=== PATIENT | female | born 1970 | race Caucasian/White ===

== ENCOUNTER 2018-07-11 07:48 | Emergency (ER) | payer OTHER ==
[~2018-07-11] VITALS: Ht 160 cm; Wt 72.6 kg
--- NOTE | 2018-07-11 07:49 | NUR ---
Patient to ER bed 6 to gown for evaluation. Side rails up. Report given to Jean-Claude KEANE.
--- NOTE | 2018-07-11 07:50 | NUR ---
PATIENT BROUGHT IN BY AMBULANCE. PATIENT AA&Ox4. RESPIRATIONS EVEN AND UNLABORED. DENIES OF ANY CHEST PAIN. 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 PT WITH A RIGHT UPPER ARM INJURY WITH DEFORMITY NOTED. PAIN = 05/10. PT CURRENTLY ON AN ARM SLING. ICE PACK GIVEN AND BEING APPLIED BY PT FOR PAIN; TOLERATING WELL. PT STATES THAT SHE HIT HER HEAD BUT DENIES OF ANY KO. PT RECALLS THE WHOLE INCIDENT. NO NAUSEA, VOMITING, OR DIZZINESS. +SLIGHT HEADACHE. NO HEMATOMA, BRUISING, OR REDNESS NOTED TO THE HEAD. REST AND RELAXATION ENCOURAGED.
[2018-07-11 07:53] VITALS: BP_SYST 132
--- NOTE | 2018-07-11 08:16 | NUR ---
ER Dr. FIELD at bedside examining patient.
[2018-07-11] MEDS ORDERED: fentaNYL CITRATE/PF 100 MCG/2 ML AMP IVP ONE ×2 (08:30→09:45)
[2018-07-11] MEDS ORDERED: PROPOFOL DRIP 100 ML IV ONE (09:00)
--- NOTE | 2018-07-11 09:00 | NUR ---
PATIENT SITTING UP ON BED. NO ACUTE DISTRESS. NO OBJECTIVE S/SX OF PAIN OBSERVED. FAMILY AT BEDSIDE. WILL CONTINUE TO MONITOR.
--- NOTE | 2018-07-11 09:37 | NUR ---
DR PAYNE AT BEDSIDE FOR EVALUATION
--- NOTE | 2018-07-11 09:40 | NUR ---
PATIENT PLACED ON ARM SLING BY DR. PAYNE. TOLERATING WELL.
[2018-07-11 10:05] VITALS: BP_SYST 132
--- NOTE | 2018-07-11 10:05 | NUR ---
Patient given written and verbal discharge instructions and verbalizes understanding. ER MD discussed with patient the results and treatment provided. Patient in stable condition. ID arm band removed. IV catheter removed intact and dressing applied, no active bleeding. Rx of NORCO given. Patient educated on pain management and to follow up with PMD. Pain Scale 4/10; TOLERABLE VERBALIZED. NO OBJECTIVE S/SX OF PAIN OBSERVED. Opportunity for questions provided and answered. Medication side effect fact sheet provided. PATIENT IN STABLE CONDITION.
== END 2018-07-11 10:05 | disposition home or self-care (01) ==
LOC: SED 07:48
DX: S42.201A Unspecified fracture of upper end of right humerus, initial encounter for closed fracture (principal); W01.0XXA Fall on same level from slipping, tripping and stumbling without subsequent striking against object, initial encounter; Y93.89 Activity, other specified; Y92.89 Other specified places as the place of occurrence of the external cause; Y99.8 Other external cause status
CPT/HCPCS: 73060; 96374; 96376; 99283; J3010